=== PATIENT | female | born 1970 | race Caucasian/White ===

== ENCOUNTER 2023-10-21 04:33 | Day surgery (SDC) | payer OTHER ==
[2023-10-14 10:16] VITALS: BMI 36.2
[2023-10-21] MEDS ORDERED: FENTANYL CITRATE/PF 50 MCG/ML VIAL ONE ×2 (11:38→11:39)
[2023-10-21] MEDS ORDERED: MIDAZOLAM HCL 2 MG/2 ML SINGLE DOSE VIAL ONE (11:38)
[2023-10-21 12:25] VITALS: BP 127/49; PULSE 66; RESP 17; TEMP 97.8
== END 2023-10-21 12:25 | disposition home or self-care (01) ==
LOC: JASU-ENDO 04:33
PROVIDERS: ATTEND Internal Medicine Gastroenterology
PROC: 0DJD8ZZ Inspection of Lower Intestinal Tract, Via Natural or Artificial Opening Endoscopic (ICD-10-PCS; principal; 2023-10-21 10:30)
DX: Z12.11 Encounter for screening for malignant neoplasm of colon (principal); Z53.09 Procedure and treatment not carried out because of other contraindication; R05.8 Other specified cough; J44.9 Chronic obstructive pulmonary disease, unspecified
CPT/HCPCS: 81025; 82962